=== PATIENT | male | born 1965 | race Caucasian/White ===

== ENCOUNTER 2023-07-03 20:18 | Inpatient (IN) | payer BC, OTHER ==
[~2023-07-03] VITALS: Ht 190.5 cm; Wt 108.3 kg
[2023-07-03 21:53] LABS: Hematocrit 42.1 % (41.0-53.0); Mean Corpuscular Hemoglobin 29.8 pg (28.0-32.0); Mean Corpuscular Hgb Conc. 33.3 g/dL (32.0-36.0); Mean Corpuscular Volume 89.6 fL (80.0-100.0); Red Cell Distribution Width 13.5 % (11.8-14.3); White Blood Cell 10.4 10^3/uL (4.4-10.8)
[2023-07-03 22:06] LABS: Basophils % (manual) 0 (0.0-2.0); Blast Cells 0; Eosinophils % (manual) 0 (0-7); Metamyelocytes % 0; Myelocytes % 0; Promyelocytes % 0; Reactive Lymphocytes 0
[2023-07-03 22:13] LABS: Alanine Aminotransferase 27 U/L (7-40); Albumin 4.3 g/dL (3.2-4.8); Alkaline Phosphatase 71 U/L (46-116); Anion Gap 9 (5-15); Aspartate Aminotransferase 29 U/L (13-40); BUN/Creatinine Ratio 12.8 (10.0-20.0); Blood Urea Nitrogen 10 mg/dL (9-23); Calcium 9.7 mg/dL (8.5-10.1); Carbon Dioxide 24 mmol/L (20-30); Chloride 101 mmol/L (98-107); Glucose 93 mg/dL (74-106); Potassium 3.9 mmol/L (3.5-5.1); Sodium 134 mmol/L (136-145)
[2023-07-03 22:14] LABS: Bilirubin, Total 0.6 mg/dL (0.2-1.0); Total Protein 8.8 g/dL (5.7-8.2)
[2023-07-03 22:18] LABS: Band Neutrophils % (manual) 3; Lymphocytes % (manual) 12 (10.0-50.0); Monocytes % (manual) 17 (0-12); Platelet Estimate Adequate; RBC Morphology Normal
[2023-07-04] MEDS ORDERED: ONDANSETRON HCL 4 MG/2 ML VIAL IV PRN (01:00)
[2023-07-04] MEDS ORDERED: VANCOMYCIN PER PHARMACY 0 MG IV SCH (01:00)
[2023-07-04] MEDS ORDERED: DEXTROSE (50%) 50ML SYRG IV PRN (01:00)
[2023-07-04] MEDS: VANCOMYCIN 1GM/200ML 200 ML IV ONE ×2 (01:30→10:25)
[2023-07-04 01:46] LABS: INR 1.15 (0.9-1.15); Partial Thromboplastin Time 31.2 SEC (24.5-34.5)
[2023-07-04 03:09] VITALS: RESP 20; O2SAT 98
[2023-07-04] MEDS: CLINDAMYCIN 600MG IV 50 ML IV ONE (03:09)
[2023-07-04] MEDS ORDERED: InsuLIN REG 1unit/0.01ml Soln (100units/ml) SC SCH (06:00)
[2023-07-04] MEDS ORDERED: ACCU-CHEK COMFORT CURVE STRIP VI SCH (06:00)
[2023-07-04 09:50] VITALS: BP 118/74; PULSE 76; RESP 16; TEMP 98.1; O2SAT 97
[2023-07-04] MEDS: MORPHINE SULFATE INJ 2 MG/ml SYRG IV PRN (10:25)
[2023-07-04] MEDS ORDERED: ATEN-60 PO (11:01)
[2023-07-04] MEDS ORDERED: SPIR25TA8 PO (11:01)
[2023-07-04] MEDS ORDERED: ATOR20TA50 PO (11:01)
[2023-07-04] MEDS: PIPERACILLIN-TAZOB 3.375GM 100 ML IV SCH ×2 (12:00→22:42)
[2023-07-04 12:30] VITALS: BP 115/75; PULSE 70; RESP 16; TEMP 98.2; O2SAT 98
[2023-07-04] MEDS ORDERED: ASPI1TAB20 PO (13:21)
[2023-07-04 16:05] VITALS: BP 113/68; PULSE 75; RESP 18; TEMP 98.3; O2SAT 96
[2023-07-04] MEDS: VANCOMYCIN 1GM/200ML 200 ML IV SCH (16:47)
[2023-07-04 17:57] LABS: Urine Bacteria None Seen /hpf (None Seen)
[2023-07-04 18:14] LABS: Urine Blood Negative /uL (Negative); Urine Clarity Clear (Clear); Urine Color Yellow (Yellow); Urine Mucus FEW (None Seen); Urine Protein, UAD TRACE (Negative); Urine Specific Gravity 1.025 (1.001-1.035); Urine Urobilinogen 2 mg/dL (Negative); Urine WBC 2 /hpf (0 - 3); Urine pH 5.5 (5.0-9.0)
[2023-07-04 20:00] VITALS: PULSE 71; RESP 19; O2SAT 97
[2023-07-04 22:00] VITALS: BP_SYST 111; BP_SYST 78; BP_DIAS 33; BP_DIAS 64; PULSE 71; RESP 19; TEMP 98.2; O2SAT 97
[2023-07-05] VITALS (8 sets, daily range): BP systolic 94–123; BP diastolic 54–68; PULSE 68–102; RESP 14–20; TEMP 97.9–99; O2SAT 96–99
[2023-07-05 08:40] LABS: Basophils # (auto) 0 10 ^3/uL (0-0.2); Basophils % (auto) 0.7 % (0.0-2.0); Eosinophils # (auto) 0.1 10 ^3/uL (0-0.8); Eosinophils % (auto) 1.7 % (0.0-7.0); Hemoglobin 12.7 g/dL (13.5-17.5); Lymphocytes # (auto) 1.1 10 ^3/uL (0.4-5.4); Lymphocytes % (auto) 14.5 % (10.0-50.0); Mean Corpuscular Hemoglobin 29.7 pg (28.0-32.0); Mean Corpuscular Hgb Conc. 33.5 g/dL (32.0-36.0); Mean Corpuscular Volume 88.8 fL (80.0-100.0); Monocytes % (auto) 13.2 % (0.0-12.0); Neutrophils # (auto) 5.1 10 ^3/uL (1.6-8.6); Neutrophils % (auto) 69.9 % (37.0-80.0); Red Blood Cells 4.28 10^6/uL (4.5-5.90); Red Cell Distribution Width 13.6 % (11.8-14.3); White Blood Cell 7.3 10^3/uL (4.4-10.8)
[2023-07-05 08:48] LABS: Hepatitis B Surface Antigen Negative (Negative)
[2023-07-05 08:57] LABS: Alanine Aminotransferase 20 U/L (7-40); Albumin 3.7 g/dL (3.2-4.8); Alkaline Phosphatase 58 U/L (46-116); Anion Gap 5 (5-15); Aspartate Aminotransferase 18 U/L (13-40); BUN/Creatinine Ratio 14.8 (10.0-20.0); Bilirubin, Total 0.5 mg/dL (0.2-1.0); Blood Urea Nitrogen 9 mg/dL (9-23); Calcium 9.1 mg/dL (8.5-10.1); Carbon Dioxide 27 mmol/L (20-30); Chloride 103 mmol/L (98-107); Glucose 107 mg/dL (74-106); Potassium 4.1 mmol/L (3.5-5.1); Sodium 135 mmol/L (136-145); Total Protein 7.7 g/dL (5.7-8.2)
[2023-07-05 09:10] LABS: Hepatitis C Antibody Negative (Negative)
[2023-07-05] MEDS: ROPIVACAINE 0.5% (5MG/ML) 20ML AMPULE IJ ONE (10:24)
[2023-07-05] MEDS: BACITRACIN TOP OINT 1 UD PKG TOP ONE (10:24)
[2023-07-05] MEDS: ceFAZolin 1GM VL ONE (10:24)
[2023-07-05] MEDS ORDERED: GLYCOPYRROLATE 0.2 MG/ML 1ML VIAL ONE (10:43)
[2023-07-05] MEDS ORDERED: KETAMINE 50mg/ML 1ml syringe ONE (10:43)
[2023-07-05] MEDS ORDERED: ONDANSETRON HCL 4 MG/2 ML VIAL ONE (10:43)
[2023-07-05] MEDS ORDERED: PROPOFOL 10 MG/ML 20 ML IV ONE (10:43)
[2023-07-05] MEDS ORDERED: MIDAZOLAM HCL 2MG/2ML 2ml VIAL (1mg/ml) ONE (10:43)
[2023-07-05] MEDS ORDERED: fentaNYL CITRATE 100 MCG/2 ML VL ONE (10:56)
[2023-07-05] MEDS ORDERED: HYDROmorphone HCL 2 MG/ML VL/or syr IV PRN (11:45)
[2023-07-05] MEDS: ONDANSETRON HCL 4 MG/2 ML VIAL IV ONE (11:45)
[2023-07-05] MEDS: VANCOMYCIN 1GM/200ML 200 ML IV SCH (16:00)
[2023-07-05] MEDS: PIPERACILLIN-TAZOB 3.375GM 100 ML IV SCH (22:35)
[2023-07-06] VITALS (7 sets, daily range): BP systolic 100–118; BP diastolic 57–71; PULSE 77–100; RESP 14–21; TEMP 97.9–98.6; O2SAT 95–98
[2023-07-06] MEDS: ASPirin 81 mg TAB PO ONE (12:51)
[2023-07-06] MEDS: ATENOLOL 25 MG TAB PO ONE (12:52)
[2023-07-06] MEDS: SPIRONOLACTONE 25 MG TAB PO ONE (12:52)
[2023-07-06] MEDS: LIDOCAINE 1% (LOCAL ANESTH.) PF 5ml SDV ID ONE (16:15)
[2023-07-06] MEDS: ATORVASTATIN 20 MG TAB PO SCH (21:24)
[2023-07-06] MEDS: SODIUM CHLOR 0.9% PF (SALINE LOCK) 10ML VIAL/SYR IV SCH (21:30)
[2023-07-07] VITALS (8 sets, daily range): BP systolic 105–139; BP diastolic 65–83; PULSE 68–88; RESP 18–20; TEMP 98.1–98.8; O2SAT 94–98
[2023-07-07] MEDS ORDERED: SPIRONOLACTONE 25 MG TAB PO SCH (10:00)
[2023-07-07] MEDS ORDERED: ATORVASTATIN 20 MG TAB PO SCH (10:00)
[2023-07-07] MEDS ORDERED: ASPirin-EC 81 mg tab PO SCH (10:00)
[2023-07-07] MEDS ORDERED: ATENOLOL 25 MG TAB PO SCH (10:00)
[2023-07-07] MEDS: ASPirin 81 mg TAB PO SCH (10:05)
[2023-07-07] MEDS: ATENOLOL 25 MG TAB PO SCH (10:06)
[2023-07-07] MEDS: SPIRONOLACTONE 25 MG TAB PO SCH (10:06)
[2023-07-07] MEDS: VANCOMYCIN 1GM/200ML 200 ML IV SCH (18:23)
[2023-07-08] VITALS (7 sets, daily range): BP systolic 104–128; BP diastolic 64–80; PULSE 70–87; RESP 16–20; TEMP 97.7–98; O2SAT 94–97
[2023-07-08 14:07] LABS: Chloride 103 mmol/L (98-107); Sodium 134 mmol/L (136-145)
[2023-07-08 14:08] LABS: Anion Gap 4 (5-15); Calcium 9.3 mg/dL (8.5-10.1); Carbon Dioxide 27 mmol/L (20-30)
[2023-07-08 14:13] LABS: BUN/Creatinine Ratio 14.3 (10.0-20.0); Blood Urea Nitrogen 11 mg/dL (9-23); Glucose 184 mg/dL (74-106)
[2023-07-08] MEDS: VANCOMYCIN 1GM/200ML 200 ML IV SCH ×2 (15:56→23:55)
[2023-07-08] MEDS ORDERED: VANCOMYCIN 1GM/200ML 200 ML IV SCH (17:00)
[2023-07-09 05:00] VITALS: BP 117/77; PULSE 72; RESP 18; TEMP 98; O2SAT 97
[2023-07-09 05:20] LABS: Basophils # (auto) 0.1 10 ^3/uL (0-0.2); Basophils % (auto) 1.1 % (0.0-2.0); Eosinophils # (auto) 0.2 10 ^3/uL (0-0.8); Eosinophils % (auto) 2.9 % (0.0-7.0); Hematocrit 40.6 % (41.0-53.0); Hemoglobin 13.6 g/dL (13.5-17.5); Lymphocytes # (auto) 1.2 10 ^3/uL (0.4-5.4); Lymphocytes % (auto) 16.5 % (10.0-50.0); Mean Corpuscular Hemoglobin 29.8 pg (28.0-32.0); Mean Corpuscular Hgb Conc. 33.6 g/dL (32.0-36.0); Mean Corpuscular Volume 88.6 fL (80.0-100.0); Monocytes # (auto) 0.8 10 ^3/uL (0-1.3); Monocytes % (auto) 10.1 % (0.0-12.0); Neutrophils # (auto) 5.2 10 ^3/uL (1.6-8.6); Neutrophils % (auto) 69.4 % (37.0-80.0); Red Blood Cells 4.59 10^6/uL (4.5-5.90); Red Cell Distribution Width 13.6 % (11.8-14.3); White Blood Cell 7.6 10^3/uL (4.4-10.8)
[2023-07-09 05:25] LABS: Potassium 4.1 mmol/L (3.5-5.1)
[2023-07-09 05:27] LABS: Calcium 9.5 mg/dL (8.7-10.4)
[2023-07-09 05:31] LABS: BUN/Creatinine Ratio 13.5 (10.0-20.0)
[2023-07-09 05:33] LABS: Albumin 3.9 g/dL (3.2-4.8)
[2023-07-09 05:34] LABS: Phosphorus 3.6 mg/dL (2.4-5.1)
[2023-07-09 08:00] VITALS: BP 114/76; PULSE 72; PULSE 73; RESP 17; TEMP 97.7; O2SAT 96
[2023-07-09 09:00] VITALS: BP 114/76; PULSE 73; RESP 17; TEMP 97.7; O2SAT 96
[2023-07-09] MEDS ORDERED: DOXY1CAP57 PO (09:58)
[2023-07-09 13:00] VITALS: BP 119/80; PULSE 72; RESP 16; TEMP 98.1; O2SAT 97
[2023-07-09 15:51] VITALS: BP 114/76; PULSE 73; RESP 17; TEMP 98.1; O2SAT 96
[2023-07-09 17:01] VITALS: BP 115/76; PULSE 83; RESP 16; TEMP 98.2; O2SAT 98
== END 2023-07-09 17:20 | disposition home health service (06) | DRG 617 ==
LOC: EDBD 20:18 → ER 20:18 → OVERFLOW 07-04 01:04 → EAST 07-04 09:50 → CENTRAL 07-04 15:35
PROVIDERS: ADMIT Internal Medicine Geriatric Medicine; ATTEND Internal Medicine Geriatric Medicine
PROC: 0Y6P0Z0 Detachment at Right 1st Toe, Complete, Open Approach (ICD-10-PCS; principal; 2023-07-05 10:49)
PROC: 02HV33Z Insertion of Infusion Device into Superior Vena Cava, Percutaneous Approach (ICD-10-PCS; 2023-07-06)
PROC: B548ZZA Ultrasonography of Superior Vena Cava, Guidance (ICD-10-PCS; 2023-07-06)
DX: E11.69 Type 2 diabetes mellitus with other specified complication (principal); M86.8X7 Other osteomyelitis, ankle and foot; L97.519 Non-pressure chronic ulcer of other part of right foot with unspecified severity; E78.5 Hyperlipidemia, unspecified; I11.0 Hypertensive heart disease with heart failure; L03.031 Cellulitis of right toe; I50.9 Heart failure, unspecified; E11.621 Type 2 diabetes mellitus with foot ulcer; Z83.3 Family history of diabetes mellitus
CPT/HCPCS: 36415; 36569; 71045; 73718; 80048; 80053; 80069; 80202; 81001; 82565; 83036; 83605; 85007; 85025; 85027; 85610; 85730; 86803; 86850; 86900; 86901; 87040; 87070; 87075; 87077; 87186; 87205; 87340; 93306; 93926; G0378; J0690; J2250; J2405; J2543; J2704; J3490